=== PATIENT | male | born 1945 | race Caucasian/White ===

== ENCOUNTER → 2019-05-07 13:11 | Day surgery (SDC) | payer MEDICARE ==
[~2019-05-07 13:11] MED LIST: Albuterol HFA INHALER* 8 gm MDI INH PRN; Buffered Lidocaine 1% SYRIN* 1 ML/SYRINGE INTRADERM ONE; Bupivacaine 0.5%* 50 ML MDV VIAL ONE; Lactated Ringers 1000 ML Bag* 1,000 ML IV SCH; Lidocaine 1% INJ* 10 MG/ML 30 ML SDV ONE; Lidocaine 2% PF * 5 ML VIAL ONE; Losartan TAB* 25 MG PO SCH; Midazolam* 1 MG/ML 2 ML VIAL (2 MG) ONE; Naloxone* 0.4 MG/ML 1 ML VIAL IV PRN; Propofol* 10 MG/ML 20 ML BTL ONE; ceFAZolin 2 GM in NS PREMIX(*) 2 GM/100 ML BAG IVPB ONE; fentaNYL* 50 MCG/ML 2 ML VIAL (100 MCG VIAL) ONE
[2019-05-07 17:54] VITALS: BP 138/85
--- NOTE | 2019-05-07 21:28 | OP ---
DATE OF OPERATION: 05/07/19 [facility] DATE OF : 43 SERVICE: General Surgery. ATTENDING SURGEON: Elizabet Beasley MD [employer] LAB[employer]ER: None. ANESTHESIOLOGIST: Dr. Hari Nur. ANESTHESIA: Local/MAC. PRE-OP DIAGNOSIS: Base of tongue cancer. POST-OP DIAGNOSIS: Base of tongue cancer. OPERATIVE PROCEDURE: Placement of 8-Malian port in right internal jugular vein. ESTIMATED BLOOD LOSS: Approximately 20 cc. INDICATIONS: Mr. Day is a very pleasant 73-year-old gentleman with a history of a base of tongue cancer, status post excision, who requires chemotherapy. Therefore, he presented for port placement. He understood the risks, benefits, and alternatives of the procedure, and he wished to proceed. DESCRIPTION OF PROCEDURE: The patient was brought back to the operating room and placed on the operating table in the supine position. Sequential compression devices were placed in the bilateral lower extremities for DVT prophylaxis. Antibiotics with Ancef were administered, and the patient was given sedation by the anesthesiologist and his right neck and chest wall were prepped and draped in normal sterile fashion. Prior to beginning the procedure , a time-out was performed, verifying the patient's name, MR number, and the procedure to be performed. Next, the right internal jugular vein was identified using an ultrasound. 1% lidocaine was used to anesthetize the subcutaneous tissue and using a finder needle, the right internal jugular vein was accessed under direct visualization with ultrasound. Once this was done, dark venous blood was aspirated easily and a guidewire was placed through the needle, and fluoroscopy was used to confirm placement of the guidewire into the superior vena cava and descending into the the right atrium and ventricle. After this was done, the finder needle was removed and the wire was secured to the drape, so that it would not be dislodged. Next, on the right chest wall, an approximately 3 cm transverse incision was made through the skin and down to the subcutaneous tissue for placement of the port. An inferior flap was made for the placement of the port and once this was done, the port easily sat in this pocket. Next, the 8-Malian catheter was tunneled from the port site up towards the neck where the wire was coming out through a small campbell in the neck. 1% lidocaine was used to infiltrate the tract and the tunneling catheter was used to facilitate this tunneling. Next, the peel-away sheath and introducer were advanced over the guidewire. The guidewire and introducer were removed, and then the 8-Malian catheter was in place into the peel-away sheath, and the peel-away sheath was broken off as the catheter was advanced through it. Once the peel-away sheath was completely removed, the catheter was noted to be well in the right atrium and ventricle under fluoroscopy. It was pulled back until the tip of the catheter was approximately in the right atrium just below the cavoatrial junction. After this placement was confirmed, the catheter was cut at the skin level and attached to the port. The port was then secured to the chest wall using 3-0 Prolene sutures and a Hampton needle was used to confirm that the port could be aspirated and flushed very easily. Once this was confirmed, the skin at the port site was closed using interrupted 3-0 Vicryl sutures. This was done after ensuring that there was hemostasis in the port pocket. The skin was then closed using a running 4-0 Monocryl suture and the skin campbell at the neck was also closed using an interrupted 4-0 Monocryl suture. Sterile dressing was then placed and final check under fluoroscopy confirmed again that the catheter was in place just below the cavoatrial junction and then port was then flushed with heparin saline. Sterile dressing was then placed and the patient was woken up and he was taken to the PACU in stable condition. At the end of the case, all counts were correct and I was present during the entirety of the case. A chest x ray was performed in the PACU which confirmed placement of the port in the SVC and was negative for a pneumothorax. [id number]/[facility] #: [id number] [facility]
== END | disposition home or self-care (01) ==
LOC: OR 13:11
PROVIDERS: ATTEND Surgery
DX: C01 Malignant neoplasm of base of tongue (principal); Z87.891 Personal history of nicotine dependence; I10 Essential (primary) hypertension; M19.90 Unspecified osteoarthritis, unspecified site; J45.909 Unspecified asthma, uncomplicated; J44.9 Chronic obstructive pulmonary disease, unspecified
CPT/HCPCS: 71045; 76000; C1788; J0690; J1642; J2250; J2704; J3010; J3490